=== PATIENT | female | born 1990 | race Caucasian/White ===

== ENCOUNTER 2021-11-18 23:23 | Emergency (ER) | payer BC, OTHER ==
[~2021-11-18] VITALS: Ht 175.3 cm; Wt 111.1 kg
--- NOTE | 2021-11-18 23:41 | NUR ---
Dr Barone at bedside, MSE in progress.
[2021-11-18] MEDS ORDERED: TDAP DIPH,PERTUSS,TET VAC/PF 0.5 ML DISP.SYRIN IM ONE (23:55)
[2021-11-18] MEDS ORDERED: BACITRACIN ZINC OINT 15 GM TUBE ONE (23:55)
[2021-11-18] MEDS ORDERED: NEOMY/BACITRA/POLYMYXIN B OINT UD PACKET TP ONE (23:57)
[2021-11-19] MEDS ORDERED: TDAP DIPH,PERTUSS,TET VAC/PF 0.5 ML DISP.SYRIN IM ONE
[2021-11-19] MEDS ORDERED: NEOMY/BACITRA/POLYMYXIN B OINT UD PACKET TP ONE
--- NOTE | 2021-11-19 00:08 | NUR ---
Patient discharged to home in stable condition. Written and verbal after care instructions given. Patient verbalizes understanding of instructions. Stressed follow up or return to ER for worsening s/s. pt ambulated with steady gait. denies pain. no SOB. no chest pain. AOx4.
[2021-11-19 00:14] VITALS: BP 119/83
== END 2021-11-19 00:14 | disposition home or self-care (01) ==
LOC: ER 23:44
DX: S01.21XA Laceration without foreign body of nose, initial encounter (principal); W21.89XA Striking against or struck by other sports equipment, initial encounter; Y93.B9 Activity, other involving muscle strengthening exercises; Y92.89 Other specified places as the place of occurrence of the external cause; Y99.8 Other external cause status; Z88.8 Allergy status to other drugs, medicaments and biological substances
CPT/HCPCS: 90715; A4663